=== PATIENT | female | born 1990 ===

== ENCOUNTER 2019-06-28 15:42 | Outpatient (CLI) | payer OTHER ==
--- NOTE | 2019-06-28 16:02 | RAD ---
RADIOGRAPH RIGHT KNEE 4 VIEWS: 06/28/19 HISTORY: 28-year-old female with right knee pain. COMPARISON: None. FINDINGS: No joint effusion. At the patellofemoral compartment, tiny osteophytes without joint space narrowing. Medial and lateral compartment joint spaces are maintained without erosions or osteophytes. No destr uctive osseous lesion. No fracture or dislocation. IMPRESSION: 1. 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 2. Otherwise normal. POS: CET
== END 2019-06-28 15:43 | disposition home or self-care (01) ==
LOC: RAD-FRANK 15:42
PROVIDERS: ATTEND Nurse Practitioner Family
DX: M25.561 Pain in right knee (principal); M17.11 Unilateral primary osteoarthritis, right knee